=== PATIENT | male | born 1995 | race Caucasian/White ===

== ENCOUNTER 2018-03-14 10:09 | Emergency (ER) | payer OTHER ==
--- NOTE | 2018-03-14 10:45 | EDM.PDOC ---
ED HPI GENERAL MEDICAL PROBLEM - General Chief Complaint: Lower Extremity Injury/Pain Stated Complaint: INJURED RT KNEE Time Seen by Provider: 03/14/18 10:42 Source of Information: Reports: Patient History Limitations: Reports: No Limitations - History of Present Illness INITIAL COMMENTS - FREE TEXT/NARRATIVE: 22-year-old male was climbing on a tower for work and slipped and struck the right anterior aspect of his knee on a ladder step. He feels like it swollen, painful, and there is a pressure inside his knee. He is able to walk however and has no significant swelling or bruising. No other injury. Onset: Sudden Duration: Hour(s): (Within the last 2 hours) Location: Reports: Lower Extremity, Right Quality: Reports: Sharp Severity: Moderate Worsens with: Reports: Movement Associated Symptoms: Reports: No Other Symptoms Right Knee Pain Score (Numeric/FACES): 7 - Related Data Allergies Allergy/AdvReac Type Severity Reaction Status Date / Time No Known Allergies Allergy Verified 03/14/18 10:24 Home Meds: Home Meds NK [No Known Home Meds] 03/14/18 [History] Past Medical History HEENT History: Reports: Impaired Vision Musculoskeletal History: Reports: Fracture Dermatologic History: Reports: Eczema Social & Family History - Tobacco Use Smoking Status *Q: Current Every Day Smoker Years of Tobacco use: 6 Packs/Tins Daily: 0.5 - Caffeine Use Caffeine Use: Reports: Energy Drinks - Recreational Drug Use Recreational Drug Use: No Review of Systems - Review of Systems Review Of Systems: See Below Constitutional: Denies: Fever Respiratory: Denies: Shortness of Breath Cardiovascular: Denies: Chest Pain GI/Abdominal: Denies: Nausea, Vomiting Skin: Denies: Bruising Neurological: Reports: No Symptoms ED EXAM, GENERAL - Physical Exam Exam: See Below Exam Limited By: No Limitations General Appearance: Alert, No Apparent Distress Respiratory/Chest: No Respiratory Distress Extremities: Other (Exam is otherwise limited to the lower extremities. His knees looks symmetric, the right knee has no effusion or swelling. There is tenderness to palpation of the patella and medial joint line with some increased tightness and pain with flexion of the knee passively.) Course - Vital Signs Last Recorded V/S: Last Vital Signs Temp 98.1 F 03/14/18 10:26 Pulse 108 H 03/14/18 10:26 Resp 14 03/14/18 10:26 BP 120/72 03/14/18 10:26 Pulse Ox 95 03/14/18 10:26 - Re-Assessments/Exams Free Text/Narrative Re-Assessment/Exam: 03/14/18 10:44 An x-ray of the right knee was obtained. 03/14/18 11:38 Knee x-ray looks excellent. An David wrap was applied to the knee and he can recheck when home if not improving satisfactorily. Departure - Departure Time of Disposition: 11:49 Disposition: Home, Self-Care 01 Condition: Good Clinical Impression: Knee contusion Qualifiers: Encounter type: initial encounter Laterality: right Qualified Code(s): S80.01XA - Contusion of right knee, initial encounter - Discharge Information Instructions: Contusion, [id number] Referrals: PCP,None [Primary Care Provider] - Forms: ED Department Discharge Care Plan Goals: Wrap knee for comfort and increase activity as tolerated. Ibuprofen may help. Recheck in 2-3 days if not improving satisfactorily.
--- NOTE | 2018-03-14 11:38 | CR ---
Knee 3V Rt CLINICAL HISTORY: Pain, trauma FINDINGS: No acute fracture or dislocation is noted. There are no osseous lesions. Articular surfaces are smooth Impression: Negative
== END 2018-03-14 11:49 | disposition home or self-care (01) ==
LOC: JP.ED 10:09
DX: S80.01XA Contusion of right knee, initial encounter (principal); F17.210 Nicotine dependence, cigarettes, uncomplicated; W01.198A Fall on same level from slipping, tripping and stumbling with subsequent striking against other object, initial encounter; Y99.0 Civilian activity done for income or pay
CPT/HCPCS: 73562-26-RT; 73562-RT; 99284